=== PATIENT | female | born 1990 | race Caucasian/White ===

== ENCOUNTER → 2017-03-20 | Outpatient (CLI) | payer BC ==
[~2017-03-20] MED LIST: C-LEXIN250 MG PO; NEURONTIN100 MG PO
== END ==
LOC: BHSO 15:24
DX: F41.1 Generalized anxiety disorder (principal)

== ENCOUNTER → 2018-04-09 | Outpatient (CLI) | payer BC | LOC: BHSO 13:54 | DX: F31.81 Bipolar II disorder (principal) | CPT/HCPCS: G0463 ==

== ENCOUNTER → 2018-09-28 | Outpatient (CLI) | payer BC | LOC: BHSO 16:19 | DX: F33.42 Major depressive disorder, recurrent, in full remission (principal) | CPT/HCPCS: G0463 ==

== ENCOUNTER 2018-12-13 23:21 | Emergency (ER) | payer BC ==
[~2018-12-13] VITALS: Ht 162.6 cm; Wt 65.5 kg
[2018-12-13 23:25] VITALS: TEMP 98.7
[2018-12-13] MEDS ORDERED: BACTRIM DS 8001 TAB PO (23:30)
[2018-12-13] MEDS ORDERED: PYRIDIUM200 M1 PO (23:31)
[2018-12-13 23:49] LABS: BASO % 0.5 % (0.0-2.0); EOS # 0.1 (0.0-0.7); EOS % 0.6 % (0-4.0); GRAN # 5.7 (1.4-6.5); GRAN % 64.9 % (42.2-75.2); HEMOGLOBIN 13.4 g/dl (12.5-16.0); LYMPH # 2.1 (1.2-3.4); LYMPH % 24.5 % (20.0-51.0); MEAN CELL VOLUME 91 fl (80.0-100.0); MEAN CORPUSCULAR HEMOGLOBIN 30 pg (27.0-31.0); MEAN CORPUSCULAR HGB CONC 33 g/dl (33.0-37.0); MEAN PLATELET VOLUME 10.8 fl (7.4-10.4); MONO # 0.8 (0.1-0.6); MONO % 9.3 % (1.7-9.3); PLATELET COUNT 204 K/mm3 (130-400); RED BLOOD COUNT 4.49 M/mm3 (4.10-5.30); REDCELL DISTRIBUTION WIDTH-CV 13.1 % (11.5-14.5)
[2018-12-13 23:59] LABS: ALBUMIN 4.5 gm/dL (3.5-5.0); BILIRUBIN,TOTAL 0.5 mg/dL (0.0-1.0); CALCIUM 9.3 mg/dL (8.4-10.2); CREATININE, serum 0.62 mg/dL (0.52-1.25); POTASSIUM 3.6 mmol/L (3.4-5.0); TOTAL PROTEIN 7.9 gm/dL (6.4-8.2)
[2018-12-14 00:59] LABS: COLLECTION METHOD CLEAN CATCH
[2018-12-14 01:08] LABS: AMORPHOUS CRYSTAL Present /uL; MUCOUS Present /lpf; PH 6 (5-8); SQUAMOUS EPITHELIAL 0-2 /hpf; URINE APPEARANCE Cloudy; URINE BACTERIA None Seen /hpf; URINE BILIRUBIN Negative (NEGATIVE); URINE BLOOD 2+ (NEGATIVE); URINE COLOR Amber; URINE GLUCOSE Negative (NEGATIVE); URINE KETONE Negative (NEGATIVE); URINE LEUKOCYTE ESTERASE Trace (NEGATIVE); URINE NITRATE Positive (NEGATIVE); URINE PROTEIN(semi-quant) 1+ (NEGATIVE); URINE RBC >50 /hpf; URINE UROBILINOGEN >=4.0 mg/dL (NEGATIVE)
[2018-12-14] MEDS ORDERED: NORCO 325 MG-51 TAB PO (01:27)
[2018-12-14] MEDS ORDERED: BACTRIM DS 8001 TAB PO (01:29)
[2018-12-14 01:49] VITALS: BP 113/79; PULSE 67
== END 2018-12-14 01:46 | disposition home or self-care (01) ==
LOC: COL.ER 23:21
PROVIDERS: Nurse Practitioner
DX: N39.0 Urinary tract infection, site not specified (principal); Z87.448 Personal history of other diseases of urinary system
CPT/HCPCS: A4216; J0696; J1885; J2405; J7030

== ENCOUNTER → 2019-04-14 | Outpatient (CLI) | payer BC ==
[~2019-04-14] MED LIST changes: +BACTRIM DS 8001 TAB PO; +NORCO 325 MG-51 TAB PO; +PYRIDIUM200 M1 PO
== END ==
LOC: BHSO 16:17
DX: F33.42 Major depressive disorder, recurrent, in full remission (principal)
CPT/HCPCS: G0463

== ENCOUNTER → 2019-10-06 | Outpatient (CLI) | payer BC | LOC: BHSO 16:15 | DX: F33.42 Major depressive disorder, recurrent, in full remission (principal) | CPT/HCPCS: G0463 ==

== ENCOUNTER → 2020-01-16 | Outpatient (CLI) | payer BC | LOC: BHSO 14:37 | DX: F41.1 Generalized anxiety disorder (principal) | CPT/HCPCS: G0463 ==

== ENCOUNTER → 2020-04-23 | Outpatient (CLI) | payer BC | LOC: BHSO 10:19 | DX: F41.1 Generalized anxiety disorder (principal) | CPT/HCPCS: G0463 ==

== ENCOUNTER → 2020-07-02 | Outpatient (CLI) | payer BC | LOC: BHSO 09:37 | DX: F41.1 Generalized anxiety disorder (principal) | CPT/HCPCS: G0463 ==

== ENCOUNTER → 2020-07-24 | Outpatient (CLI) | payer BC ==
[~2020-07-24] MED LIST changes: +FERRO-TIME325 MG PO; +IBU600 MG PO; +PERCOCET 325 MG1 TA2 PO; +PREDNISONE10 MG PO; +PRENATAL TABLET PO; +ZOLOFT 25MG25 MG PO
== END | disposition still patient (30) ==
LOC: ZCOL.LAB 08:00
DX: Z20.828 Contact with and (suspected) exposure to other viral communicable diseases (principal)

== ENCOUNTER 2020-07-28 07:10 | Inpatient (IN) | payer BC ==
[2020-07-28] VITALS (54 sets, daily range): BP systolic 99–152; BP diastolic 56–88; PULSE 16–137; TEMP 97.6–100.4
[~2020-07-28] VITALS: Ht 165.1 cm; Wt 86.8 kg
[~2020-07-28 07:10] MED LIST changes: -FERRO-TIME325 MG PO; -IBU600 MG PO; -PERCOCET 325 MG1 TA2 PO; -PREDNISONE10 MG PO; -PRENATAL TABLET PO; -ZOLOFT 25MG25 MG PO
--- NOTE | 2020-07-28 07:15 | NUR ---
Patient ambulates to LR6 with spouse, changed into gown, FHR/TOCO monitors applied and explained. Patient denies any regular contractions/leaking of fluid/vaginal bleeding/decreased movement. Plan of care discussed. 0725: IV started in left hand, blood obtained and to lab, LR infusing. Consent gone over and signed/assessment done/ packet given. Questions answered. 0742: Pitocin induction discussed and patient agrees with plan of care. Pitocin started at 2mU per protocol. 0902: Patient up on birthing ball at this time. 0915: Dr. Rudolph at nurses station and updated on patients status. Platelets 84 and below level to get epidural. Dr. Rudolph orders to have a repeat lab done and lab notified. 0920: Dr. Rudolph at bedside and assessing patient and FHR at this time. SVE per physician /2. 0921: AROM at this time with clear fluid noted. Patient tolerates well. Plan of care discussed and questions answered.
[2020-07-28 08:04] LABS: BASO % 0.3 % (0.0-2.0); EOS % 0.2 % (0-4.0); GRAN # 5.7 (1.4-6.5); GRAN % 65.2 % (42.2-75.2); HEMOGLOBIN 12.2 g/dl (12.5-16.0); LYMPH # 2.4 (1.2-3.4); LYMPH % 27.1 % (20.0-51.0); MEAN CELL VOLUME 93 fl (80.0-100.0); MEAN CORPUSCULAR HEMOGLOBIN 31 pg (27.0-31.0); MEAN CORPUSCULAR HGB CONC 33 g/dl (33.0-37.0); MONO # 0.6 (0.1-0.6); MONO % 6.9 % (1.7-9.3); RED BLOOD COUNT 3.91 M/mm3 (4.10-5.30); REDCELL DISTRIBUTION WIDTH-CV 13.6 % (11.5-14.5)
[2020-07-28 08:08] LABS: HEMATOCRIT 36.5 % (37.0-47.0)
[2020-07-28] MEDS ORDERED: PRENATAL TABLET PO (08:21)
[2020-07-28 09:30] LABS: PLATELET COUNT 95 K/mm3 (130-400)
[2020-07-28 10:05] LABS: MEAN CELL VOLUME 94 fl (80.0-100.0); MEAN CORPUSCULAR HEMOGLOBIN 31 pg (27.0-31.0); MEAN CORPUSCULAR HGB CONC 33 g/dl (33.0-37.0); MEAN PLATELET VOLUME 14.4 fl (7.4-10.4); PLATELET COUNT 88 K/mm3 (130-400); RED BLOOD COUNT 3.89 M/mm3 (4.10-5.30); REDCELL DISTRIBUTION WIDTH-CV 13.6 % (11.5-14.5)
[2020-07-28 10:07] LABS: HEMATOCRIT 36.5 % (37.0-47.0)
--- NOTE | 2020-07-28 10:50 | NUR ---
Patient sitting on birthing ball. Dr. Rudolph at bedside discussing level of repeat PLT-88. Dr. Rudolph gave options of stadol IV, turning pitocin off and ambulating or sitting in hotub if needed. Patient verbalizes understanding. Shey VILLAGRAN notified of PLT level.
--- NOTE | 2020-07-28 11:45 | NUR ---
Patient onto bed in knees/chest position. 1154: FHR monitor tracing materal heart rate and monitor adjusted. 1158: SVE-6//-2 and patient requests getting into hot tub. 1220: Patient states feeling increased pressure. SVE-//-1. 1230: Patient off monitors and assisted into hot tub. 1250: Patient back into bed and monitors on. SVE-/-1. Patient left lateral with peanut ball between knees. 1310: Patient off monitors to try to void. 1315: Patient feeling more pressure. SVE-8-//-1. Patient left lateral with peanut ball. 1317: Dr. Rudolph updated.
--- NOTE | 2020-07-28 15:15 | NUR ---
Dr. Rudolph at bedside assessing patient and FHR strip. SVE: -/0 and physician assessing strength of contractions and orders to turn pitocin back on at 4mU. 1515: Pitocin started at 4 mU. Patient sitting up on bedside commode. 1550: Dr. Rudolph at bedside assessing patient and FHR strip. SVE:/0. No new orders at this time
[2020-07-28] MEDS ORDERED: PREDNISONE10 MG PO (15:26)
--- NOTE | 2020-07-28 16:00 | NUR ---
Dr. Rudolph at nurses station reviewing FHR strip. 1625: SVE per [id number]-6-30/100/0 and patient sitting up in bed. 1630: Dr. Rudolph orders to increase pitocin. 1648: Dr. Rudolph at bedside and assessing patient and FHR strip. 1650: SVE-10/100/0 and patient given pushing instructions and begins pushing with each contraction with Dr. Rudolph. 1700: Patient continues to push to with contractions and FHR tracing recurrent variable decelerations. 1725: Patient continues to push with contractions and patient set up for vaginal delivery. 1730: Physician injects lidocaine in perineum. 1734: Spontaneous vaginal delivery of viable female- head followed by body. to patients chest and bulb syringed. Lety BAZZI assumes care of . Cord blood obtained. Cord clamped by physician and cut by FOB. Dr. Rudolph begins to repair right side vaginal laceration. 1800: Manual extraction of placenta and pitocin bolus started at 333mU per procotol. Dr. Rudolph orders for 200mcg of cytotec rectally. 180: Cytotec 200mcg placed by physician. Dr. Rudolph performing fundal massage. 1805: orders methergine IM 1808: Methergine IM given in left thigh. Dr. Rudolph massaging placenta. 181: Sena BAZZI at bedside and given report and assumes care of patient.
[2020-07-28 19:09] LABS: HEMOGLOBIN 10.6 g/dl (12.5-16.0); MEAN CELL VOLUME 96 fl (80.0-100.0); MEAN CORPUSCULAR HEMOGLOBIN 31 pg (27.0-31.0); MEAN CORPUSCULAR HGB CONC 32 g/dl (33.0-37.0); MEAN PLATELET VOLUME 13.8 fl (7.4-10.4); PLATELET COUNT 131 K/mm3 (130-400); RED BLOOD COUNT 3.44 M/mm3 (4.10-5.30); REDCELL DISTRIBUTION WIDTH-CV 13.6 % (11.5-14.5)
[2020-07-28 19:40] LABS: BAND 3 % (0-10); HYPOCHROMIA 1+; LYMPHOCYTE 5 % (20.0-51.0); NEUTROPHILS 88 % (42.0-75.2); PLATELET ESTIMATE NORMAL (NORMAL)
[2020-07-28 21:02] LABS: HEMATOCRIT 27.2 % (37.0-47.0); HEMOGLOBIN 9.2 g/dl (12.5-16.0)
--- NOTE | 2020-07-28 23:19 | NUR ---
2240- RN TO BEDSIDE FOR VITALS AND FUNDAL PUSH. PATIENT FEELING BETTER AFTER PAIN MEDS AND FOOD. RN REMAINS IN ROOM AND DISCUSSES WITH PATIENT ABOUT GETTING UP AND GETTING TO THE BATHROOM. PATIENT STATED SHE WOULD LIKE TO TRY. RN HELPS PAITENT TO THE SIDE OF THE BED. PATIENT FEELS OKAY, JUST A LITTLE WEAK. PATIENT SITS AT THE SIDE OF THE BED WITH RN IN FRONT OF HER FOR ABOUT 5 MINUTES. PATIENT THEN VERBALIZES SHE IS READY TO GET UP. PATIENT GETS UP WITHOUT ANY PROBLEMS, STATES SHE FEELS GOOD AND BEGINS SLOWLY WALKING TO THE BATHROOM. RN REMAINS AT HER SIDE. PATIENT TO THE BATHROOM AND SITTING ON TOITLET. PATIENT STATES SHE FEELS OKAY, JUST WEAK. RN GETS CHARLIE BOTTLE WITH WARM WATER AND BEGINS TO HELP CLEAN PATIENT UP. AFTER CHARLIE BOTTLE, PATIENT VERBALIZES FEELING LIKE HER VOICE WAS FAR AWAY AND THAT SHE MIGHT PASS OUT. RN PULLS EMERGENCY CALL LIGHT AND CHARGE NURSE AND NURSERY NURSE COME IN RIGHT AWAY. THEY BRING WHEELCHAIR AND HELP GET PATIENT INTO WHEELCHAIR. PATIENT PASSES OUT FOR ABOUT 5-10 SECONDS IN THE WHEELCHAIR. ALL 3 RNS REMAIN AT PATIENT SIDE AND BEGIN STIMULATING PATIENT WITH A CHEST RUB AND HAVING HER SMELL ALCOHOL UNDER HER NOSE. PATIENT REGAINED CONSCIOUSNESS AND STATED SHE FELT AWAKE AGAIN. HELPED PATIENT INTO THE BED. PATIENT STATED SHE FEELS BETTER AND CAN HEAR AGAIN. GOT PATIENTS VITALS ONCE IN BED AND FEELING BETTER AND THEY WERE WITHIN NORMAL LIMITS. ADVISED PATIENT SHE WOULD STAY IN BED FOR A WHILE LONGER AND THEN MAYBE IN AN HOUR OR TWO AFTER SOME REST, WE COULD THINK ABOUT TRYING AGAIN. SHE AGREED AND SAID THANK YOU. CALL LIGHT WITHIN REACH AND PATIENT DENIES NEEDING ANYTHING ELSE.
[2020-07-29 01:25] VITALS: BP 113/66; PULSE 82; TEMP 97.3
[2020-07-29 04:35] VITALS: BP 110/66; PULSE 78; TEMP 97.5
[2020-07-29 07:17] LABS: BASO % 0.2 % (0.0-2.0); EOS % 0.1 % (0-4.0); GRAN # 11.9 (1.4-6.5); GRAN % 72.1 % (42.2-75.2); LYMPH # 3.2 (1.2-3.4); LYMPH % 19.5 % (20.0-51.0); MEAN CELL VOLUME 93 fl (80.0-100.0); MEAN CORPUSCULAR HGB CONC 34 g/dl (33.0-37.0); MEAN PLATELET VOLUME 13.2 fl (7.4-10.4); MONO # 1.3 (0.1-0.6); MONO % 7.6 % (1.7-9.3); PLATELET COUNT 63 K/mm3 (130-400); RED BLOOD COUNT 2.43 M/mm3 (4.10-5.30); REDCELL DISTRIBUTION WIDTH-CV 13.6 % (11.5-14.5)
[2020-07-29 07:18] LABS: HEMATOCRIT 22.7 % (37.0-47.0); HEMOGLOBIN 7.6 g/dl (12.5-16.0); MEAN CORPUSCULAR HEMOGLOBIN 31 pg (27.0-31.0)
[2020-07-29 07:45] VITALS: BP 109/61; PULSE 71; TEMP 97.5
[2020-07-29 21:00] VITALS: BP 102/56; PULSE 87; TEMP 98.3
[2020-07-30 07:41] LABS: MEAN CORPUSCULAR HGB CONC 32 g/dl (33.0-37.0); MEAN PLATELET VOLUME 13.3 fl (7.4-10.4); PLATELET COUNT 109 K/mm3 (130-400); RED BLOOD COUNT 2.36 M/mm3 (4.10-5.30); REDCELL DISTRIBUTION WIDTH-CV 14.4 % (11.5-14.5)
[2020-07-30 07:42] LABS: HEMOGLOBIN 7.4 g/dl (12.5-16.0); MEAN CELL VOLUME 98 fl (80.0-100.0); MEAN CORPUSCULAR HEMOGLOBIN 31 pg (27.0-31.0)
[2020-07-30 07:47] VITALS: BP 114/61; PULSE 73; TEMP 98.4
--- NOTE | 2020-07-30 09:15 | NUR ---
Initial visit; Parents thanked [employer] Power[employer]ic for offering congratulations and God's blessings for the of their daughter. [employer]ic thanked family for choosing [facility].
[2020-07-30] MEDS ORDERED: PERCOCET 325 MG1 TA2 PO (10:56)
[2020-07-30] MEDS ORDERED: IBU600 MG PO (10:56)
[2020-07-30] MEDS ORDERED: FERRO-TIME325 MG PO (10:56)
[2020-07-30 17:31] VITALS: BP 123/74; PULSE 90; TEMP 98.1
== END 2020-07-30 18:09 | disposition home or self-care (01) | DRG 806 ==
LOC: LDR 07:10 → OB 14:51
PROVIDERS: Student in an Organized Health Care Education/Training Program; ADMIT Obstetrics & Gynecology
PROC: 10E0XZZ Delivery of Products of Conception, External Approach (ICD-10-PCS; principal; 2020-07-28)
PROC: 0KQM0ZZ Repair Perineum Muscle, Open Approach (ICD-10-PCS; 2020-07-28)
PROC: 10907ZC Drainage of Amniotic Fluid, Therapeutic from Products of Conception, Via Natural or Artificial Opening (ICD-10-PCS; 2020-07-28)
DX: O36.63X0 Maternal care for excessive fetal growth, third trimester, not applicable or unspecified (principal); O99.12 Other diseases of the blood and blood-forming organs and certain disorders involving the immune mechanism complicating childbirth; Z37.0 Single live birth; O72.1 Other immediate postpartum hemorrhage; D69.6 Thrombocytopenia, unspecified; O69.81X0 Labor and delivery complicated by cord around neck, without compression, not applicable or unspecified; O70.1 Second degree perineal laceration during delivery; D62 Acute posthemorrhagic anemia; O90.81 Anemia of the puerperium; Z3A.39 39 weeks gestation of pregnancy
CPT/HCPCS: J0290; J1580; J2210; J2270; J2590; J7120

== ENCOUNTER 2020-08-13 00:34 | Inpatient (IN) | payer BC ==
[2020-08-13] VITALS (28 sets, daily range): BP systolic 93–123; BP diastolic 43–84; PULSE 76–143; TEMP 97.9–99.1
[~2020-08-13] VITALS: Ht 165.1 cm; Wt 73.6 kg
[~2020-08-13 00:34] MED LIST changes: +FERRO-TIME325 MG PO; +IBU600 MG PO; +PERCOCET 325 MG1 TA2 PO; +PREDNISONE10 MG PO; +PRENATAL TABLET PO
[2020-08-13] MEDS ORDERED: ZOLOFT 25MG25 MG PO (01:09)
[2020-08-13 01:53] LABS: BASO # 0.1 (0.0-0.2); BASO % 0.8 % (0.0-2.0); EOS # 0.2 (0.0-0.7); GRAN # 4.8 (1.4-6.5); GRAN % 62.5 % (42.2-75.2); LYMPH # 2.1 (1.2-3.4); LYMPH % 26.8 % (20.0-51.0); MEAN CELL VOLUME 98 fl (80.0-100.0); MEAN CORPUSCULAR HGB CONC 32 g/dl (33.0-37.0); MEAN PLATELET VOLUME 10.2 fl (7.4-10.4); MONO # 0.6 (0.1-0.6); MONO % 7.6 % (1.7-9.3); PLATELET COUNT 267 K/mm3 (130-400); RED BLOOD COUNT 2.73 M/mm3 (4.10-5.30); REDCELL DISTRIBUTION WIDTH-CV 15.5 % (11.5-14.5)
[2020-08-13 01:54] LABS: HEMATOCRIT 26.7 % (37.0-47.0); HEMOGLOBIN 8.4 g/dl (12.5-16.0); MEAN CORPUSCULAR HEMOGLOBIN 31 pg (27.0-31.0)
[2020-08-13 02:53] LABS: ALBUMIN 3.4 gm/dL (3.5-5.0); BILIRUBIN,TOTAL 0.3 mg/dL (0.0-1.0); CALCIUM 8.7 mg/dL (8.4-10.2); CREATININE, serum 0.65 (0.52-1.25); POTASSIUM 3.4 mmol/L (3.4-5.0); TOTAL PROTEIN 6.1 gm/dL (6.4-8.2)
--- NOTE | 2020-08-13 05:40 | NUR ---
PT TO UNIT FOLLOWING D&C IN MAIN OR. REPORT RECEIVED FROM Olegario HAYWOOD CRNA. VS STABLE, PT DENIES NEED FOR PAIN MEDS AT THIS TIME. PT STATES THAT SHE FEELS BLOOD COMING OUT. MINIMAL BLEEDING VISUALIZED, UPON FUNDAL MASSAGE A PALM SIZED CLOT WAS EXPRESSED. DR. PATEL STILL ON UNIT, WAS NOTIFED AND CAME INTO ROOM TO EVALUATE. PAD, CHUX AND CLOT WEIGHED, 223GMS. DR PATEL ORDERS FOR 1 UNIT OF PRBC TO BE GIVEN NOW AND POSSIBLY ANOTHER UNIT ONCE PENDING LABS RESULT. DR. PATEL DISCUSSING BLOOD TRANSFUSION WITH PT AND SPOUSE, UNDERSTANDING VERBALIZED. UPON ARRIVAL TO THE ER HGB OF 8.4, FOLLOWING D&C HGB DOWN TO 6.3. DR PATEL ORDERS FOR A 2ND UNIT TO BE GIVEN IMMEDIATELY FOLLOWING THE 1ST, REDRAW H&H 1 HOUR FOLLOWING COMPLETION OF 2ND.
[2020-08-13 05:51] LABS: BASO % 0.5 % (0.0-2.0); EOS # 0.1 (0.0-0.7); EOS % 1.8 % (0-4.0); GRAN # 5.2 (1.4-6.5); GRAN % 64.3 % (42.2-75.2); MEAN CELL VOLUME 101 fl (80.0-100.0); MEAN CORPUSCULAR HGB CONC 31 g/dl (33.0-37.0); MEAN PLATELET VOLUME 10.5 fl (7.4-10.4); MONO # 0.6 (0.1-0.6); PLATELET COUNT 233 K/mm3 (130-400); RED BLOOD COUNT 2.02 M/mm3 (4.10-5.30); REDCELL DISTRIBUTION WIDTH-CV 15.7 % (11.5-14.5)
[2020-08-13 06:10] LABS: HEMATOCRIT 20.3 % (37.0-47.0); HEMOGLOBIN 6.3 g/dl (12.5-16.0); MEAN CORPUSCULAR HEMOGLOBIN 31 pg (27.0-31.0)
[2020-08-13 06:10] LABS: INR 1.1 (0.8-3.0); PROTHROMBIN TIME 12.6 SECONDS (9.7-12.8)
[2020-08-13 06:13] LABS: PARTIAL THROMBOPLASTIN TIME 31.5 SECONDS (26.0-37.0)
--- NOTE | 2020-08-13 06:15 | NUR ---
KUN RN IN ROOM WITH THIS NURSE FOR BEDSIDE REPORT. PT STATES MORE BLEEDING. FUNDAL MASSAGE PERFORMED, FIST SIZED CLOT OUT, PADS AND CLOT WEIGHED, 283GMS. JLUIS TRISTAN TO LAB TO GET 1 UNIT OF BLOOD.
--- NOTE | 2020-08-13 06:15 | NUR ---
0615- Ivonne RN at bedside for bedside report with Tashi Haley RN. See previous RN note regarding bleeding. 0635- Roles notified by Jaden Duarte RN regarding deteoriation in patient status and requested at bedside. Physician in transit. This RN to lab to obtain blood product per previous order. 0638- Tashi Haley RN at bedside, calls for assistance due to increased bleeding and patient deterioration. Jaden Duarte RN and this RN at bedside. Patient reports difficulty breathing and states "I feel like I'm going to pass out". 0640- Patient started on oxygen 10 L via nonbreather mask. Patient reports improvement with intervention. 0641- Camp Program Director updated on patient status and plan of care for possible return to OR. Camp Program Director contacting director of field service at this time. 0645- First unit of blood infusing per order and protocol after double RN check. RNs remain at bedside. 0646- Roles calls unit, orders given to Madison Carty RN to give IM Hemabate now and physician will be there shortly. 0647- Multiple IV attempts made by Maine Harrison RN, Tashi Haley RN, and Susy Hickey. 0650- Hemabate given by Maine Harrison RN per order, see EMAR. 0657- Roles at bedside. Reviewing plan of care, discussing return to OR for D&C, possible exploratory laparotomy, and possible hysterectomy. Patient verbalizes understanding, denies questions and consent signed. 0704- Second IV started in RH by Tashi Haley RN. Saline locked. 0705- Souza catheter placed by this RN at this time per protocol and order. Blood infusion increased to 200 ml/hr. 0708- Pericare given and chux and pad weighed. Noted at 232 grams. 0710- Roles at bedside, aware of vital signs and weighed blood loss. Orders to transfer to OR at this time. 0715- Katarzyna, director of field service, requesting more time to prep OR. RNs remain at bedside, Roles aware. 0723- Vital signs obtained prior to transfer to OR. Patient transferred to OR via bed by this RN and Tashi Haley RN. Patient Alert & oriented. See intraoperative report. Care assumed by ELI Corcoran RN.
--- NOTE | 2020-08-13 07:04 | NUR ---
IV attempts: 0647- S Hunter RH 18 g attempt, Kaur Haley RN RW 20 g attempt, Susy Hickey LH 18 g attempt and LW 20 g attempt
--- NOTE | 2020-08-13 09:20 | NUR ---
Patient to room 221 via bed from PACU. Report from JOLANTA CamU RN and care of patient assumed at this time. Patient alert and oriented, denies need for pain medication and denies nausea. Monitors applied, oxygen currently at 2 L via nasal cannula. Patient updated on plan of care. Denies questions. Call light in reach. Second unit of FFP infusing, see EMAR. RN remains at bedside per protocol. Patient tolerates well. See physician notification.
--- NOTE | 2020-08-13 11:05 | NUR ---
Cristin with at bedside.
--- NOTE | 2020-08-13 11:17 | NUR ---
LC advises pt that current research indicates she can breastfeed or pump and provide baby breastmilk by bottle when she feels she is awake and able to perform the task as medications she received for sedation are not long acting. Questions invited and answered.
--- NOTE | 2020-08-13 11:30 | NUR ---
Roles at bedside.
--- NOTE | 2020-08-13 12:36 | NUR ---
Initial visit; Patient and her thanked Pulp Tester for looking in on Alexandra and offering prayer of thanksgiving for the improvement in her health. Pulp Tester offered God's further blessings and wished her and her family continued wellness.
[2020-08-13 18:52] LABS: HEMATOCRIT 27.9 % (37.0-47.0); HEMOGLOBIN 9.4 g/dl (12.5-16.0)
[2020-08-14] VITALS (7 sets, daily range): BP systolic 98–115; BP diastolic 51–64; PULSE 69–77; TEMP 97.8–98.6
--- NOTE | 2020-08-14 04:00 | NUR ---
0400 PERICARE DONE AND PAD CHANGED. 25 CENT SPOT ON PAD. MOVES WELL IN BED. SCD'S IN PLACE. CARREON DRAINING CL URINE. CARREON BAG TO BAKKRI WITH MINIMAL VAG BLEEDING. UTERUS REMAINS AT SAME LEVEL. STATES NO DISCOMFORT AT THIS TIME.
--- NOTE | 2020-08-14 11:15 | NUR ---
Pt states she feels her milk supply is decreased on the right breast. She has been using a combination of and pumping to provide milk by bottle. Advised to pump/breastfeed a little longer on the right breast, continue to consume good fluid volumes. Will monitor status. Questions invited and answered.
--- NOTE | 2020-08-14 13:30 | NUR ---
6745- Dr Rudolph at bedside, discusses plan of care, Pt and deny questions. No output noted from Bakri in vernon bag. Scant amount of dark red blood noted on Peripad. 50mls of NS removed from Bakri by . Pt tolerated well. Will continue to remove fluid 50mls every 2hrs. Pt encouraged to call out with changes in bleeding or pain. Pt verbalizes understanding. Call light within reach.
--- NOTE | 2020-08-14 14:00 | NUR ---
1400- This RN at bedside to check on Pt, states that she feels something "trickling out" but can't tell how much. Upon exam, appears to be the same amount of blood noted on pad, blood removed from labia with pad. No active discharge noted from vagina. Pt states her bladder feels like it is getting full, catheter tube adjusted and approx. 200mls noted.
--- NOTE | 2020-08-14 14:30 | NUR ---
1430- Pericare completed by this RN. No active bleeding noted. Scant amount of bloody drainage noted in Bakri tube after Pt lifts buttock off of bed. Pt tolerated well.
--- NOTE | 2020-08-14 15:30 | NUR ---
1530- RN at bedside, VSS, Pt denies pain, noticable vaginal bleeding. 1535- 50mls of NS removed from Bakri per MD order. No change in bleeding. Pt tolerated well.
--- NOTE | 2020-08-14 17:35 | NUR ---
7013- Dr Rudolph and this RN at bedside. 50mls of NS removed from Bakri by MD. No increase in bleeding noted. Plan of care updated, questions encouraged but Pt denies. 5mls of blood emptied from Bakri for 12hr total.
--- NOTE | 2020-08-14 18:30 | NUR ---
Bedside report recieved at this time. Updated whiteboard. Reviewed POC. Bakkri remains with scan drainage noted in bag. Mala position reviewed - remains that the line labeled 2100. Denied questions or concerns at this time.
--- NOTE | 2020-08-14 21:45 | NUR ---
Assisted with a bed bath at this time. Pt brushed her teeth. New gown on, clean peripad and clean blankets to bed. Call light within reach. Denied questions or concerns.
[2020-08-15 01:30] VITALS: BP 109/56; PULSE 72; TEMP 98.3
[2020-08-15 05:45] VITALS: BP 114/56; PULSE 67; TEMP 98.3
--- NOTE | 2020-08-15 05:45 | NUR ---
50mls of fluid removed from Bakkri balloon at this time per Dr. Rudolph's order. Bleeding remains unchanged following removal of fluid. Total of 29mls of drainage emptied from catheter bag for the total 12 hour shift.
[2020-08-15 07:25] LABS: BASO % 0.5 % (0.0-2.0); EOS # 0.2 (0.0-0.7); EOS % 2.4 % (0-4.0); GRAN # 4.6 (1.4-6.5); GRAN % 62.2 % (42.2-75.2); LYMPH # 2.1 (1.2-3.4); LYMPH % 27.8 % (20.0-51.0); MEAN CORPUSCULAR HGB CONC 32 g/dl (33.0-37.0); MEAN PLATELET VOLUME 10.6 fl (7.4-10.4); MONO # 0.5 (0.1-0.6); MONO % 6.6 % (1.7-9.3); PLATELET COUNT 160 K/mm3 (130-400); RED BLOOD COUNT 2.68 M/mm3 (4.10-5.30); REDCELL DISTRIBUTION WIDTH-CV 17.2 % (11.5-14.5)
[2020-08-15 07:28] LABS: HEMATOCRIT 24.9 % (37.0-47.0); MEAN CELL VOLUME 93 fl (80.0-100.0); MEAN CORPUSCULAR HEMOGLOBIN 30 pg (27.0-31.0)
[2020-08-15 08:00] VITALS: BP 114/65; PULSE 64; TEMP 98.4
--- NOTE | 2020-08-15 10:00 | NUR ---
1000- A few drops removed from Bakri bag. Francine RN at bedside to assit. 32mls of Saline removed from balloon until resistance met. With gentle traction, Bakri removed from vagina without difficutly, no active vaginal bleeding noted. Approx 10mls of dark red blood removed from bakri bag after removal. Pt tolerated. well. Pericare completed, peripad changed. Pt encouraged to call out if vaginal bleeding noted. Verablizes understanding, call light within reach.
--- NOTE | 2020-08-15 10:30 | NUR ---
1025- Pt denies pain or cramping. Pencil eraser sized spot noted on peripad, Pt lifts bottom off of bed and back down, no vaginal bleeding noted. Will continue to monitor.
--- NOTE | 2020-08-15 11:00 | NUR ---
1100- No additional discharge noted on pad. Pt feeling well. Pt assisted to sitting on side of bed, feels well enought to stand, continues to feel well. Underwear and peripad on, Pt wants to walk a short way, ambulates indendently with RN standby approximately 10 yards. Pt denies dizziness, light-headedness. Pt has great color. Pt back to room, into bathroom. Souza removed without difficulty, Pericare completed. New pad and underwear on. Pt tolerated well. Ambulates back to bed independently. Encouraged to call out with concerns.
[2020-08-15 11:20] VITALS: BP 109/61; PULSE 64; TEMP 97.8
--- NOTE | 2020-08-15 11:27 | NUR ---
Pt states milk supply continues to be a little low on the right side. Encouraged her to stop pumping and breastfeed baby every 2-3 hours, starting on the right side each time. PUmp if baby does not empty breasts well. Questions invited and answered.
--- NOTE | 2020-08-15 14:20 | NUR ---
1420- Pt denies noticing vaginal bleeding. Pt ready to take shower. Precautions given, call light pointed out in bathroom. remains in room with Pt. Bedding changed.
[2020-08-15 16:11] VITALS: BP 110/67; PULSE 81; TEMP 98
--- NOTE | 2020-08-15 17:40 | NUR ---
1740- Pt voids without difficulty, 200mls. Pt calls RN to room, states she noticed a small clot when she wiped. RN notes a small grape sized clot in hat, urine yellow and clear. Will continue to monitor.
[2020-08-15 19:00] VITALS: BP 115/59; PULSE 76; TEMP 98.4
[2020-08-16] VITALS: BP 104/52; PULSE 73; TEMP 98.9
[2020-08-16 03:30] VITALS: BP 114/56; PULSE 74; TEMP 98.3
[2020-08-16 07:20] VITALS: BP 111/57; PULSE 78; TEMP 97.8
[2020-08-16] MEDS ORDERED: LYSTEDA650 MG PO (09:09)
--- NOTE | 2020-08-16 11:14 | NUR ---
Patient given discharge instructions. Denies questions. Will follow up in 6 days and continue medications.
--- NOTE | 2020-08-16 11:26 | NUR ---
Patient escorted off unit by this RN after reviewing discharge instuciont.s
== END 2020-08-16 11:26 | disposition home or self-care (01) | DRG 769 ==
LOC: COL.ER 00:34 → OB 03:11
PROVIDERS: Nurse Practitioner Primary Care; Obstetrics & Gynecology; ADMIT Obstetrics & Gynecology
PROC: 0W3R7ZZ Control Bleeding in Genitourinary Tract, Via Natural or Artificial Opening (ICD-10-PCS; 2020-08-13)
PROC: 10D17ZZ Extraction of Products of Conception, Retained, Via Natural or Artificial Opening (ICD-10-PCS; principal; 2020-08-13 05:00)
DX: O72.2 Delayed and secondary postpartum hemorrhage (principal); D62 Acute posthemorrhagic anemia; O90.81 Anemia of the puerperium
CPT/HCPCS: OP; J0330; J0690; J1170; J1940; J2210; J2250; J2405; J2704; J3010; J7030; P9016